=== PATIENT | male | born 2000 | race Caucasian/White ===

== ENCOUNTER → 2023-04-24 | Outpatient (CLI) | payer OTHER ==
--- NOTE | 2023-04-26 09:24 | MR ---
EXAMINATION TYPE: MR knee LT wo con DATE OF EXAM: 04/24/2023 COMPARISON: None HISTORY: Left knee pain, locking and jerel. TECHNIQUE: Multiplanar, multisequence imaging of the left knee is performed without IV contrast. FINDINGS: MEDIAL MENISCUS: Anterior and posterior horns are intact without tear. LATERAL MENISCUS: Anterior and posterior horns are intact without tear. CRUCIATE LIGAMENTS: The anterior and posterior cruciate ligaments are intact and unremarkable. COLLATERAL LIGAMENTS: The medial collateral ligament intact. There is a diffuse abnormal signal at th e origin and proximal aspect of the lateral collateral ligament compatible with grade 2 sprain. Also edema with popliteus tendon EXTENSOR MECHANISM: Visualized quadriceps and patellar tendons are intact. EFFUSION: Trace of fluid is however persistent. POPLITEAL CYST: No popliteal/singh cyst. TRICOMPARTMENT SPACES: Joint spaces are preserved. CARTILAGE: Maintained BONE MARROW SIGNAL: No focal abnormal marrow signal is appreciated. OTHER: Small lymph node measuring less than a centimeter in short axis within the posterior soft tis sues. IMPRESSION: 1. Grade 2 proximal LCL sprain. 2. Popliteus tendinosis. 3. No meniscal tear identified.
== END | disposition home or self-care (01) ==
LOC: RADMRIMAIN 21:15
PROVIDERS: ATTEND Orthopaedic Surgery
DX: S83.422A Sprain of lateral collateral ligament of left knee, initial encounter (principal)

== ENCOUNTER → 2024-01-17 | Outpatient (CLI) | payer OTHER ==
--- NOTE | 2024-01-18 11:56 | MR ---
EXAMINATION TYPE: MR knee LT wo con DATE OF EXAM: 01/17/2024 COMPARISON: MRI left knee April 24, 2023. Outside Left knee x-ray January 03, 2024 HISTORY: Left knee pain lateral side and around patella x10 months, knee locks after running TECHNIQUE: Multiplanar, multisequence images of the knee is performed without IV contrast. FINDINGS: MEDIAL MENISCUS: Anterior and posterior horns are intact without tear. LATERAL MENISCUS: Anterior and posterior horns are intact without tear. CRUCIATE LIGAMENTS: The anterior and posterior cruciate ligaments are intact and unremarkable. COLLATERAL LIGAMENTS: The medial collateral ligament and lateral collateral ligament complex are inta ct and unremarkable. EXTENSOR MECHANISM: Visualized quadriceps and patellar tendons are intact. EFFUSION: No significant suprapatellar joint effusion. POPLITEAL CYST: No popliteal/singh cyst. TRICOMPARTMENT SPACES: Tricompartmental joint spaces are maintained. No significant spurring is seen. CARTILAGE: Tricompartmental articular cartilage is preserved. BONE MARROW SIGNAL: No focal abnormal marrow signal is appreciated. OTHER: No additional significant abnormality is appreciated. IMPRESSION: No meniscal or ligamentous tear is seen. No significant new finding since prior MRI.
== END | disposition home or self-care (01) ==
LOC: RADMRIMAIN 19:07
PROVIDERS: ATTEND Orthopaedic Surgery
DX: M25.562 Pain in left knee (principal)

== ENCOUNTER 2024-06-18 16:40 | Emergency (ER) | payer BC, OTHER ==
--- NOTE | 2024-06-18 17:07 | ED ---
Back Pain HPI - General Chief Complaint: Back Pain/Injury Stated Complaint: CT scan for back pain Time Seen by Provider: 06/18/24 16:55 Source: patient, RN notes reviewed Mode of arrival: ambulatory Limitations: no limitations - History of Present Illness Initial Comments: This is a 24-year-old male who presents to the emergency department for urinary incontinence. Patient states that over the last 2 to 3 weeks he has had significant urinary urgency and there are times when he urinates on himself and is completely incontinent, and does not even realize he is going. He does not have problems with his bowels. He went to urgent care and they tested his urine, which was negative. He was advised to come to the emergency department for a CT scan of his back to rule out spinal cord compression. He does have some back pain/discomfort, but nothing particularly severe. When he does get pain it is typically left-sided to the mid and lower back. - Related Data Previous Rx's Medication Instructions Recorded oxyBUTYnin chloride [oxyBUTYnin 10 mg PO DAILY #60 tab 06/18/24 chloride ER] Allergies Allergy/AdvReac Type Severity Reaction Status Date / Time No Known Allergies Allergy Verified 06/18/24 17:13 Review of Systems ROS Statement: Those systems with pertinent positive or pertinent negative responses have been documented in the HPI. ROS Other: All systems not noted in ROS Statement are negative. General Exam Limitations: no limitations General appearance: alert, in no apparent distress Head exam: Present: atraumatic, normocephalic, normal inspection Respiratory exam: Present: normal lung sounds bilaterally. Absent: respiratory distress, wheezes, rales, rhonchi, stridor Cardiovascular Exam: Present: regular rate, normal rhythm, normal heart sounds. Absent: systolic murmur, diastolic murmur, rubs, gallop, clicks GI/Abdominal exam: Present: soft, normal bowel sounds. Absent: distended, tenderness, guarding, rebound, rigid Back exam: Present: full ROM, other (Tenderness to palpation over the left mid to lower back) Neurological exam: Present: alert, oriented X3, CN II-XII intact Psychiatric exam: Present: normal affect, normal mood Skin exam: Present: warm, dry, intact, normal color. Absent: rash Course Vital Signs 06/18/24 06/18/24 17:11 20:18 Temperature 98.6 F 98.2 F Pulse Rate 91 89 Respiratory 18 18 Rate Blood Pressure 122/79 118/81 O2 Sat by Pulse 99 99 Oximetry Medical Decision Making - Medical Decision Making This is a 24 year old male who presents to the emergency department for back pain and urinary incontinence. Was pt. sent in by a medical professional or institution? @ -No Did you speak to anyone other than the patient for history? @ -No Did you review nursing and triage notes? @ -Yes, and I agree, it is accurate with regards to the patient's symptoms. Were old charts reviewed? @ -No Differential Diagnosis? @ -Differential Back Pain: Strain, zoster, cauda equina syndrome, epidural abscess, vertebral osteomyelitis, discitis, fracture, subluxation, disc herniation, DJD, spinal stenosis, dissection, AAA, pancreatitis, peptic ulcer disease, pyelonephritis, kidney stone, this is not meant to be an all-inclusive list. EKG interpreted by me (3pts min.)? @ -Not obtained X-rays interpreted by me (1pt min.)? @ -Not obtained CT interpreted by me (1pt min.)? @ -CT scan of the thoracic and lumbar spine obtained. My interpretation identifies no acute fractures. U/S interpreted by me (1pt. min.)? @ -Not obtained What testing was considered but not performed? (CT, X-rays, U/S, labs)? Why? @ -None What meds were considered but not given? Why? @ -None Did you discuss the management of the patient with other professionals? @ -No Did you reconcile home meds? @ -No Was smoking cessation discussed for >3mins.? @ -No Was critical care preformed (if so, how long)? @ -No Were there social determinants of health that impacted care today? How? (Homel essness, low income, unemployed, alcoholism, drug addiction, transportation, low edu. Level, literacy, decrease access to med. care, [facility], rehab)? @ -No Was there de-escalation of care discussed even if they declined? (Discuss DNR or withdrawal of care, Hospice)? @ -No What co-morbidities impacted this encounter? (DM, HTN, Smoking, COPD, CAD, Can cer, CVA, Hep., AIDS, mental health diagnosis, sleep apnea, morbid obesity)? @ -None Was patient admitted / discharged? @ -Discharged. Lab work unremarkable. Urinalysis negative for signs of infection. CT scan of the thoracic and lumbar spine obtained revealing no acute process. We discussed that an MRI would be needed to better evaluate the possibility of spinal cord compression and back pain. However, he advised that this is not so much a back pain issue and he is rarely completely incontinent, it is more of a problem regarding urinary urgency and frequency. I did offer admission for further evaluation, however he declined and would like to follow- up on an outpatient basis. I sent in Ditropan to see if treating him for possible overactive bladder offered any benefit. Information for urology follow-up provided as well. Patient discharged home in stable condition with strict return parameters. Case discussed with ED attending Dr. Gomez. Return precautions reviewed in depth, the patient is instructed to return to the emergency department with any new, worsening, or concerning symptoms. Patient verbalized understanding. Undiagnosed new problem with uncertain prognosis? @ -None Drug Therapy requiring intensive monitoring for toxicity (Heparin, Nitro, Insulin, Cardizem)? @ -None Were any procedures done? @ -None Diagnosis/symptom? @ -Urinary frequency, urinary incontinence Acute, or Chronic, or Acute on Chronic? @ -Acute Uncomplicated (without systemic symptoms) or Complicated (systemic symptoms)? @ -Uncomplicated Side effects of treatment? @ -None Exacerbation, Progression, or Severe Exacerbation] @ -Progression Poses a threat to life or bodily function? @ -The frequency of his urination is having an impact on his ability to function to some extent - Lab Data Result diagrams: 06/18/24 18:11 06/18/24 18:11 Lab Results 06/18/24 06/18/24 06/18/24 Range/Units 17:55 18:11 18:11 WBC 7.3 (3.8-10.6) k/uL RBC 5.79 (4.30-5.90) m/uL Hgb 17.3 (13.0-17.5) gm/dL Hct 50.9 (39.0-53.0) % MCV 87.9 (80.0-100.0) fL MCH 29.8 (25.0-35.0) pg MCHC 33.9 (31.0-37.0) g/dL RDW 11.6 (11.5-15.5) % Plt Count 270 (150-450) k/uL MPV 7.2 Neutrophils % 58 % Lymphocytes % 32 % Monocytes % 6 % Eosinophils % 1 % Basophils % 1 % Neutrophils # 4.2 (1.3-7.7) k/uL Lymphocytes # 2.3 (1.0-4.8) k/uL Monocytes # 0.5 (0-1.0) k/uL Eosinophils # 0.1 (0-0.7) k/uL Basophils # 0.0 (0-0.2) k/uL Sodium 140 (137-145) mmol/L Potassium 4.6 (3.5-5.1) mmol/L Chloride 107 (98-107) mmol/L Carbon Dioxide 23 (22-30) mmol/L Anion Gap 10 mmol/L BUN 13 (9-20) mg/dL Creatinine 0.75 (0.66-1.25) mg/dL Est GFR (CKD-EPI)AfAm >90 (>60 ml/min/1.73 sqM) Est GFR (CKD-EPI)NonAf >90 (>60 ml/min/1.73 sqM) Glucose 94 (74-99) mg/dL Calcium 10.0 (8.4-10.2) mg/dL Total Bilirubin 0.9 (0.2-1.3) mg/dL AST 31 (17-59) U/L ALT 45 (4-49) U/L Alkaline Phosphatase 77 (38-126) U/L Total Protein 8.1 (6.3-8.2) g/dL Albumin 5.4 H (3.5-5.0) g/dL Urine Color Colorless Urine Appearance Clear (Clear) Urine pH 7.0 (5.0-8.0) Ur Specific [place] 1.008 (1.001-1.035) Urine Protein Negative (Negative) Urine Glucose (UA) Negative (Negative) Urine Ketones Negative (Negative) Urine Blood Negative (Negative) Urine Nitrite Negative (Negative) Urine Bilirubin Negative (Negative) Urine Urobilinogen <2.0 (<2.0) mg/dL Ur Leukocyte Esterase Negative (Negative) - Radiology Data Radiology results: report reviewed, image reviewed Disposition Clinical Impression: Urinary frequency Disposition: HOME SELF-CARE Instructions (If sedation given, give patient instructions): Overactive Bladder (DC), Urinary Urgency and Frequency (DC) Additional Instructions: Return to the emergency department with any new, worsening, or concerning symptoms. You can try taking the oxybutynin medication as 2 tabs once daily to see if this helps with your urinary symptoms. You can also contact the urologist listed below. Let them know that you were seen in the emergency department and they will schedule you for follow-up appointment. Prescriptions: oxyBUTYnin chloride [oxyBUTYnin chloride ER] 10 mg PO DAILY #60 tab Is patient prescribed a controlled substance at d/c from ED?: No Referrals: None,Stated [Primary Care Provider] - 1-2 days Cuate Olson MD [STAFF PHYSICIAN] - 1-2 days Time of Disposition: 19:46
[2024-06-18 17:13] VITALS: RESP 18
--- NOTE | 2024-06-18 17:44 | CT ---
EXAMINATION TYPE: CT thor lumbar spine wo con CT DLP: 1040.6 mGycm, Automated exposure control for dose reduction was used. DATE OF EXAM: 06/18/2024 5:28 PM CLINICAL INDICATION: Male, 24 years old with history of Mid to lower back pain, urinary incontinence; Mid to lower back pain, urinary incontinence COMPARISON: None TECHNIQUE: Axial images of the thoracic and lumbar spine were obtained without contrast. Coronal and sagittal reformats were performed. 3-D reformats of the bones were created on a separate workstation and submitted for review. CT Contrast: Contrast used: mL of , none. Oral contrast used: none. FINDINGS: Thoracic: The thoracic vertebral bodies have preserved heights and alignment. Intervertebral discs and osseou s structures have normal appearance. I do not see any evidence of extradural defects nor significant spinal canal narrowing at any thoraci c vertebral body level. Lumbar: Alignment: There are 5 lumbar type vertebral bodies within normal alignment. Bone: No evidence of fracture is identified. Discs: T12-L1: No spinal canal or neural foraminal stenosis is identified. L1-L2: No spinal canal or neural foraminal stenosis is identified. L2-L3: No spinal canal or neural foraminal stenosis is identified. L3-L4: No spinal canal or neural foraminal stenosis is identified. L4-L5: No spinal canal or neural foraminal stenosis is identified. L5-S1: No spinal canal or neural foraminal stenosis is identified. Other: None IMPRESSION: 1. No evidence of fracture of the lumbar spine. 2. No spinal canal or neural foraminal stenosis is definitely visualized.
[2024-06-18 18:33] LABS: Basophils % (A) 1 %; Eosinophils # (A) 0.1 k/uL (0-0.7); Eosinophils % (A) 1 %; HCT 50.9 % (39.0-53.0); HGB 17.3 gm/dL (13.0-17.5); Lymphocytes # (A) 2.3 k/uL (1.0-4.8); Lymphocytes % (A) 32 %; MCH 29.8 pg (25.0-35.0); MCHC 33.9 g/dL (31.0-37.0); MCV 87.9 fL (80.0-100.0); Mean Platelet Volume 7.2; Monocytes # (A) 0.5 k/uL (0-1.0); Monocytes % (A) 6 %; Neutrophils # (A) 4.2 k/uL (1.3-7.7); Neutrophils % (A) 58 %; Platelet Count 270 k/uL (150-450); RBC 5.79 m/uL (4.30-5.90); RDW 11.6 % (11.5-15.5); WBC 7.3 k/uL (3.8-10.6)
[2024-06-18 18:52] LABS: ALT 45 U/L (4-49); AST 31 U/L (17-59); African American GFR (CKD) >90 (>60 ml/min/1.73 sqM); Albumin 5.4 g/dL (3.5-5.0); Alkaline Phosphatase 77 U/L (38-126); Anion Gap 10 mmol/L; Blood Urea Nitrogen 13 mg/dL (9-20); Carbon Dioxide 23 mmol/L (22-30); Chloride 107 mmol/L (98-107); Glucose 94 mg/dL (74-99); Non-African American GFR(CKD) >90 (>60 ml/min/1.73 sqM); Potassium 4.6 mmol/L (3.5-5.1); Sodium 140 mmol/L (137-145); Total Bilirubin 0.9 mg/dL (0.2-1.3); Total Protein 8.1 g/dL (6.3-8.2)
[2024-06-18 18:56] LABS: Appearance,Urine Clear (Clear); Bilirubin,Urine Negative (Negative); Blood,Urine Negative (Negative); Color,Urine Colorless; Glucose,Urine (UA) Negative (Negative); Ketones,Urine Negative (Negative); Leukocyte Esterase,Urine Negative (Negative); Nitrite,Urine Negative (Negative); Protein,Urine Negative (Negative); Specific Gravity,Urine 1.008 (1.001-1.035); Urobilinogen,Urine <2.0 mg/dL (<2.0)
[2024-06-18 20:58] VITALS: BP 118/81; PULSE 89; TEMP 98.2
== END 2024-06-18 20:20 | disposition home or self-care (01) ==
LOC: EC 16:40
DX: R35.0 Frequency of micturition (principal)
CPT/HCPCS: 36415; 72128; 72131; 80053; 81003; 85025; 99284